=== PATIENT | female | born 1955 | race Caucasian/White ===

== ENCOUNTER 2016-11-13 12:30 | Emergency (ER) | payer OTHER ==
[~2016-11-13] VITALS: Ht 160 cm; Wt 59.0 kg
[2016-11-13] MEDS ORDERED: HYSINGLA (12:45)
[2016-11-13] MEDS ORDERED: SIMVASTATIN 20 MG TABLET (12:45)
[2016-11-13] MEDS ORDERED: IPRATROPIUM 0.06% SPRAY (12:45)
[2016-11-13] MEDS ORDERED: ZOLPIDEM TARTRATE 10 MG TABLET (12:45)
[2016-11-13] MEDS ORDERED: GABAPENTIN 300 MG CAPSULE (12:46)
--- NOTE | 2016-11-13 12:58 | NUR ---
at the bedside with the pt for MSE.
[2016-11-13 13:25] LABS: BASOPHILS # (AUTO) 0.1 K/uL (0.0-8.0); BASOPHILS % (AUTO) 0.8 % (0.0-2.0); EOSINOPHILS # (AUTO) 0.2 K/uL (0.0-0.7); EOSINOPHILS % (AUTO) 2.3 % (0.0-7.0); HEMOGLOBIN 11.9 G/DL (12.0-16.0); LYMPHOCYTES # (AUTO) 2.9 K/UL (0.8-4.8); MEAN CORPUSCULAR HEMOGLOBIN 31.9 UUG (27.0-31.0); MEAN CORPUSCULAR HGB CONC 33 g/dL (32.0-37.0); MEAN CORPUSCULAR VOLUME 96.3 FL (81.0-99.0); MONOCYTES # (AUTO) 0.4 K/UL (0.1-1.30); MONOCYTES % (AUTO) 6.3 % (0.0-11.0); NEUTROPHILS # (AUTO) 3.2 K/UL (1.8-8.9); NEUTROPHILS % (AUTO) 48.6 % (38.5-71.5); PLATELET COUNT (AUTO) 305 K/UL (150-450); RED BLOOD CELL COUNT(AUTO) 3.73 MIL/UL (4.2-5.4); WHITE BLOOD COUNT (AUTO) 6.8 K/UL (4.0-11.2)
[2016-11-13] MEDS ORDERED: OXYCODONE/APAP 5-325 MG TABLET PO ONE (13:30)
[2016-11-13 13:34] LABS: CREATININE 0.9 mg/dL (0.6-1.3); POTASSIUM 3.8 mmol/L (3.5-5.1)
[2016-11-13] MEDS ORDERED: OXYCODONE/APAP 5-325 MG TABLET ONE (13:35)
[2016-11-13 13:40] LABS: BILIRUBIN,DIRECT 0.1 mg/dL (0.0-0.2); BILIRUBIN,TOTAL 0.2 mg/dL (0.2-1.0); TOTAL PROTEIN, SERUM 6.9 g/dL (6.4-8.2)
--- NOTE | 2016-11-13 14:25 | NUR ---
Patient discharged to home in stable conditon. Written and verbal after care instructions given. Patient verbalizes understanding of instructions.
== END 2016-11-13 14:25 | disposition home or self-care (01) ==
LOC: ER 12:30
DX: K62.5 Hemorrhage of anus and rectum (principal); J45.909 Unspecified asthma, uncomplicated
CPT/HCPCS: 36415; 80048; 80076; 85025; 85730; 86850; 86900; 86901; 99284; A4663

== ENCOUNTER 2018-03-15 13:29 | Emergency (ER) | payer OTHER ==
[~2018-03-15] VITALS: Ht 160 cm; Wt 59.0 kg
[~2018-03-15 13:29] MED LIST: GABAPENTIN 300 MG CAPSULE; HYSINGLA; IPRATROPIUM 0.06% SPRAY; SIMVASTATIN 20 MG TABLET; ZOLPIDEM TARTRATE 10 MG TABLET
[2018-03-15] MEDS ORDERED: ALBUTEROL SULFATE 2.5 MG/3 ML NEBU ONE (13:36)
[2018-03-15] MEDS ORDERED: IPRATROPIUM BROMIDE 0.5 MG/2.5 ML NEBU ONE (13:36)
[2018-03-15] MEDS ORDERED: ALBUTEROL SULFATE 2.5 MG/3 ML NEBU CONT NEB ONE (13:45)
[2018-03-15] MEDS ORDERED: ACETAMINOPHEN ES 500 MG TABLET PO ONE (13:45)
[2018-03-15] MEDS ORDERED: IPRATROPIUM BROMIDE 0.5 MG/2.5 ML NEBU NEB ONE ×2 (13:45)
[2018-03-15] MEDS ORDERED: ACETAMINOPHEN ES 500 MG TABLET ONE (14:23)
[2018-03-15 14:34] LABS: BASOPHILS % (AUTO) 0.3 % (0.0-2.0); HEMATOCRIT 33.6 % (31.2-41.9); HEMOGLOBIN 11.7 g/dL (10.9-14.3); LYMPHOCYTES # (AUTO) 0.8 K/uL (20.0-40.0); MEAN CORPUSCULAR HEMOGLOBIN 34.5 uug (24.7-32.8); MEAN CORPUSCULAR HGB CONC 35 g/dL (32.3-35.6); MEAN CORPUSCULAR VOLUME 98.9 fL (75.5-95.3); MONOCYTES # (AUTO) 0.6 K/uL (2.0-10.0); MONOCYTES % (AUTO) 6.1 % (0.0-11.0); NEUTROPHILS # (AUTO) 7.9 K/uL (1.8-8.9); NEUTROPHILS % (AUTO) 84.6 % (38.5-71.5); PLATELET COUNT (AUTO) 174 K/uL (179-408); WHITE BLOOD COUNT (AUTO) 9.3 K/uL (3.8-11.8)
[2018-03-15 14:37] LABS: CREATININE 0.9 mg/dL (0.6-1.3); POTASSIUM 3.1 mmol/L (3.5-5.1)
[2018-03-15 14:49] LABS: BILIRUBIN,DIRECT 0.1 mg/dL (0.0-0.2); BILIRUBIN,TOTAL 0.3 mg/dL (0.2-1.0); TOTAL PROTEIN, SERUM 6.4 g/dL (6.4-8.2)
--- NOTE | 2018-03-15 16:21 | NUR ---
IV removed. Catheter intact and site benign. Pressure and 4x4 gauze applied to site. No bleeding noted.
[2018-03-15 16:55] VITALS: BP 116/77
--- NOTE | 2018-03-15 16:55 | NUR ---
Patient discharged to home in stable conditon. Written and verbal after care instructions given. Patient verbalizes understanding of instructions.
== END 2018-03-15 16:57 | disposition home or self-care (01) ==
LOC: ER 13:29
DX: S30.0XXA Contusion of lower back and pelvis, initial encounter (principal); J20.8 Acute bronchitis due to other specified organisms; B96.89 Other specified bacterial agents as the cause of diseases classified elsewhere; J04.0 Acute laryngitis; J45.909 Unspecified asthma, uncomplicated; F17.200 Nicotine dependence, unspecified, uncomplicated; Z91.030 Bee allergy status; Z79.899 Other long term (current) drug therapy; W18.30XA Fall on same level, unspecified, initial encounter; Y93.89 Activity, other specified; Y92.89 Other specified places as the place of occurrence of the external cause; Y99.8 Other external cause status
CPT/HCPCS: 36415; 70030-TC; 70360; 71045; 72220; 85025; 86403; 87040; 87070; 87400; 93005; A4663; A9150; J3590

== ENCOUNTER 2020-07-11 13:36 | Emergency (ER) | payer OTHER ==
[~2020-07-11] VITALS: Ht 160 cm; Wt 49.9 kg
[2020-07-11] MEDS ORDERED: ONDANSETRON 4 MG/2 ML VIAL ONE (13:56)
[2020-07-11] MEDS ORDERED: HYDROMORPHONE 2 MG/1 ML DISP.SYRIN ONE ×2 (13:56→15:48)
[2020-07-11] MEDS ORDERED: HYDROMORPHONE 1 MG/1 ML DISP.SYRIN IM ONE ×2 (14:00→15:45)
[2020-07-11] MEDS ORDERED: ONDANSETRON 4 MG/2 ML VIAL IM ONE (14:00)
[2020-07-11] MEDS ORDERED: HYDR-3980 PO (16:49)
[2020-07-11 18:27] VITALS: BP 112/75
== END 2020-07-11 18:28 | disposition home or self-care (01) ==
LOC: ER 13:36
DX: S92.011A Displaced fracture of body of right calcaneus, initial encounter for closed fracture (principal); R07.89 Other chest pain; W19.XXXA Unspecified fall, initial encounter; Y92.89 Other specified places as the place of occurrence of the external cause
CPT/HCPCS: 71250; 73610; 73630; 73700; A4663; J1170; J2405

== ENCOUNTER 2021-02-21 17:31 | Emergency (ER) | payer SELFPAY ==
[~2021-02-21 17:31] MED LIST changes: +HYDR-3980 PO
--- NOTE | 2021-02-21 17:40 | NUR ---
PT NOT AVAILABLE IN NEITHER WAITING NOR OUTSIDE ER WAITING ROOM Addendum: 02/21/21 at 1833 by OUSMANE PT LEFT WITHOUT BEING TRIAGED
== END 2021-02-21 17:40 | disposition left against medical advice (07) ==
LOC: ER 17:34
DX: Z53.21 Procedure and treatment not carried out due to patient leaving prior to being seen by health care provider (principal)

== ENCOUNTER → 2021-03-04 | Emergency (ER) | payer OTHER | END | disposition left against medical advice (07) | LOC: ER 16:56 | DX: Z53.21 Procedure and treatment not carried out due to patient leaving prior to being seen by health care provider (principal) ==

== ENCOUNTER 2021-08-09 09:57 | Emergency (ER) | payer OTHER ==
[~2021-08-09] VITALS: Ht 160 cm; Wt 50.8 kg
[2021-08-09] MEDS ORDERED: IBUPROFEN 600 MG TABLET PO ONE (10:15)
--- NOTE | 2021-08-09 10:20 | NUR ---
Pt carla back to room 2B by facility maintenance technician. Placed in pos of comfort, Rt foot elevated with pillow. [place] given . bed dropped, rails up and pt knows to call for anything. Pt has good color, temp and appearance. Pt denies any med issues. takes no meds except for arthritis pain in hands. VSS, PE WNL, NAD. aaox4, PERRLA. NSR no ectopy, RRR normal s1s2, no m/g/r, lungs ctab. No s/sxof distress present. Pt awaiting EDMD eval.
--- NOTE | 2021-08-09 10:23 | NUR ---
EDMD at bedside to eval pt. XRays ordered.
[2021-08-09] MEDS ORDERED: HYDROCODONE/APAP 5-325MG TABLET PO ONE (10:30)
[2021-08-09] MEDS ORDERED: HYDROCODONE/APAP 5-325MG TABLET ONE (10:31)
--- NOTE | 2021-08-09 10:33 | NUR ---
Port XR taken on Rt foot at bedside.
--- NOTE | 2021-08-09 10:45 | NUR ---
EDMD ordered marge taping and post op shoe. Pt does have FX of rt 5th toe at base of [facility]. EDMD said that we will wait til the radiology report to dc pt home.
--- NOTE | 2021-08-09 11:30 | NUR ---
Pt given dc instructions and confirmed understanding of aftercare teaching. Had pt reiterate teaching to confirm understandiong of instructions. Pt signed out and wheeled out to [facility] via [facility] and placed in husbands suv without incident or difficulty. Pt very happy with services rendered.
--- NOTE | 2021-08-09 12:10 | NUR ---
Pts rt pinky toe marge taped with paper tape and 1in cling to 4th toe making sure to not wrap to tightly. Women's large rt post op shoe applied to right foot with great care. Made sure that shoe provides adequate protection of toes and injury site. Pt has great cms and cap refil before and after application. Pt tolerated well with minimal pain. VSS, NAD,
--- NOTE | 2021-08-09 12:21 | NUR ---
Note undone in EDM - 08/09/21 at 1225 by [email or web address] Pt carla back to room 2B by wet wheeler. Placed in pos of comfort, Rt foot elevated with pillow. [place] given . bed dropped, rails up and pt knows to call for anything. Pt has good color, temp and appearance. Pt denies any med issues. takes no meds except for arthritis pain in hands. VSS, PE WNL, NAD. aaox4, PERRLA. NSR no ectopy, RRR normal s1s2, no m/g/r, lungs ctab. No s/sxof distress present.
[2021-08-09 14:15] VITALS: BP 130/81
== END 2021-08-09 11:30 | disposition home or self-care (01) ==
LOC: ER 09:57
DX: S92.511A Displaced fracture of proximal phalanx of right lesser toe(s), initial encounter for closed fracture (principal); W20.8XXA Other cause of strike by thrown, projected or falling object, initial encounter; Y92.89 Other specified places as the place of occurrence of the external cause; M79.671 Pain in right foot; R03.0 Elevated blood-pressure reading, without diagnosis of hypertension; Z91.030 Bee allergy status
CPT/HCPCS: 73630; A4663

== ENCOUNTER 2021-08-15 18:24 | Emergency (ER) | payer OTHER ==
[~2021-08-15] VITALS: Ht 154.9 cm; Wt 55.8 kg
[2021-08-15] MEDS ORDERED: OXYCODONE/APAP 5-325 MG TABLET ONE ×2 (18:57→19:45)
[2021-08-15] MEDS ORDERED: OXYCODONE/APAP 5-325 MG TABLET PO ONE ×2 (19:00→19:45)
--- NOTE | 2021-08-15 19:24 | NUR ---
PATIENT WAS SEEN BY . MED GIVEN ORDERED hAND OFF REPORT GIVEN TO LUIS AMARO
[2021-08-15] MEDS ORDERED: TDAP DIPH,PERTUSS,TET VAC/PF 0.5 ML DISP.SYRIN IM ONE ×2 (19:45→20:01)
[2021-08-15] MEDS ORDERED: OXYC-128 PO (20:17)
--- NOTE | 2021-08-15 20:36 | NUR ---
Patient discharged to home in stable condition. Written and verbal after care instructions given. Patient verbalizes understanding of instructions. Stressed follow up or return to ER for worsening s/s.
[2021-08-15 20:58] VITALS: BP 121/76
== END 2021-08-15 20:39 | disposition home or self-care (01) ==
LOC: ER 18:27
DX: S01.531A Puncture wound without foreign body of lip, initial encounter (principal); X58.XXXA Exposure to other specified factors, initial encounter; Y92.89 Other specified places as the place of occurrence of the external cause; S92.512A Displaced fracture of proximal phalanx of left lesser toe(s), initial encounter for closed fracture; M19.90 Unspecified osteoarthritis, unspecified site; Z91.030 Bee allergy status
CPT/HCPCS: 73660; 90715; A4663

== ENCOUNTER 2021-10-02 15:33 | Emergency (ER) | payer OTHER ==
[~2021-10-02] VITALS: Ht 167.6 cm; Wt 52.2 kg
[~2021-10-02 15:33] MED LIST changes: +OXYC-128 PO
[2021-10-02] MEDS ORDERED: DEXAMETHASONE SOD PHOSPHATE 4 MG INJ IM ONE (16:00)
[2021-10-02] MEDS ORDERED: KETOROLAC TROMETHAMINE 15 MG INJ IM ONE (16:00)
[2021-10-02] MEDS ORDERED: DEXAMETHASONE SOD PHOSPHATE 4 MG INJ ONE (16:01)
[2021-10-02] MEDS ORDERED: KETOROLAC TROMETHAMINE 15 MG INJ ONE (16:01)
[2021-10-02] MEDS ORDERED: IBUP-1955 PO (16:53)
[2021-10-02] MEDS ORDERED: BENZ-13 PO (16:53)
--- NOTE | 2021-10-02 17:39 | NUR ---
Gave pt RX and d/c instructions, pt verbalized understanding.
== END 2021-10-02 17:50 | disposition home or self-care (01) ==
LOC: ER 15:33
DX: J02.9 Acute pharyngitis, unspecified (principal); Z20.822 Contact with and (suspected) exposure to COVID-19; J44.9 Chronic obstructive pulmonary disease, unspecified; E78.5 Hyperlipidemia, unspecified; Z91.030 Bee allergy status; F17.200 Nicotine dependence, unspecified, uncomplicated
CPT/HCPCS: 99284; 71045; 86403; 87070; 36415; 96372; U0003; C9803; J1100; J1885; A4663